=== PATIENT | male | born 1970 | race Caucasian/White ===

== ENCOUNTER 2016-07-08 13:31 | Emergency (ER) | payer BC ==
[2016-07-08] MEDS ORDERED: AZITHROMYCIN 250 MG TABLET ONE (14:00)
== END 2016-07-08 14:07 | disposition home or self-care (01) ==
LOC: ED 13:31
DX: J20.9 Acute bronchitis, unspecified (principal); F17.210 Nicotine dependence, cigarettes, uncomplicated
CPT/HCPCS: 99283 ×2; A9270